=== PATIENT | male | born 1975 | race Caucasian/White ===

== ENCOUNTER 2025-07-28 18:59 | Emergency (ER) | payer OTHER, BC ==
[2025-07-28] MEDS ORDERED: fentaNYL 100 MCG/2 ML SDV ONE (19:00)
[2025-07-28] MEDS: fentaNYL 100 MCG/2 ML SDV NASBOTH ONE (19:06)
[2025-07-28 19:19] LABS: BASOPHILS ABSOLUTE AUTO 0.09 K/uL (0.00-0.10); BASOPHILS PERCENT AUTO 0.5 % (0.1-1.3); EOSINOPHILS ABSOLUTE AUTO 0.16 K/uL (0.00-0.40); EOSINOPHILS PERCENT AUTO 0.9 % (0.0-5.4); IMMATURE GRAN ABSOLUTE AUTO 0.14 K/uL (0.00-0.23); IMMATURE GRAN PERCENT AUTO 0.8 % (0.0-0.7); LYMPHOCYTES ABSOLUTE AUTO 3.83 K/uL (0.8-3.3); LYMPHOCYTES PERCENT AUTO 21.3 % (11.4-47.7); MONOCYTES ABSOLUTE AUTO 1.72 K/uL (0.20-0.90); MONOCYTES PERCENT AUTO 9.6 % (3.3-12.6); NEUTROPHILS ABSOLUTE AUTO 12.07 K/uL (1.0-7.6); NEUTROPHILS PERCENT AUTO 66.9 % (40.0-78.1); PLATELET COUNT,PLT 303 K/uL (130-375); RED BLOOD CELL COUNT 5.18 M/uL (4.14-5.76); WHITE BLOOD CELL COUNT,WBC 18.0 K/uL (3.2-11.0)
[2025-07-28] MEDS: diphenhydrAMINE 50 MG/ML SDV IVPUSH ONE (19:21)
[2025-07-28] MEDS: methylPREDNISolone Sodium Succinate 40 MG/1 ML SDV IVPUSH ONE (19:21)
[2025-07-28] MEDS: Ondansetron 4 MG/2 ML SDV IVPUSH ONE (19:21)
[2025-07-28] MEDS: Ketamine 500 MG/5 ML MDV IV ONE (19:28)
[2025-07-28 19:34] LABS: A/G RATIO 1.3 (1.2-2.2); ALANINE AMINOTRANSFERASE,ALT 81 U/L (12-78); ASPARTATE AMNIOTRANSFERASE,AST 43 U/L (15-37); BILIRUBIN TOTAL 0.4 mg/dL (0.2-1.0); BLOOD UREA NITROGEN,BUN 17 mg/dL (7-18); CARBON DIOXIDE,CO2 25 mmol/L (21-32); CHLORIDE,CL 107 mmol/L (100-108); CREATININE 1.6 mg/dL (0.8-1.3); EST CRCL DRUG DOSING (CG) 65.18 mL/min; ESTIMATED GFR 53 mL/min (>60); GLUCOSE RANDOM 141 mg/dL (74-106); POTASSIUM,K 4.3 mmol/L (3.6-5.2); PROTEIN TOTAL,TP 7.4 g/dL (6.4-8.2); SODIUM,NA 143 mmol/L (140-148)
[2025-07-28] MEDS: Lactated Ringers 1,000 ML IV ONE (20:23)
[2025-07-28] MEDS: Sodium Chloride 0.9% 10 ML Syringe FLUSH PRN (20:26)
[2025-07-28] MEDS: Sodium Chloride 0.9% 10 ML Syringe FLUSH ONE (21:41)
[2025-07-28] MEDS: Iopamidol 612 MG/ML 100 ML Bottle IV ONE (21:41)
== END 2025-07-28 22:42 | disposition home or self-care (01) ==
LOC: JP.ED 18:59
DX: S32.049A Unspecified fracture of fourth lumbar vertebra, initial encounter for closed fracture (principal); S32.059A Unspecified fracture of fifth lumbar vertebra, initial encounter for closed fracture; Z91.018 Allergy to other foods; Z88.5 Allergy status to narcotic agent; Z91.041 Radiographic dye allergy status; V86.05XA Driver of 3- or 4- wheeled all-terrain vehicle (ATV) injured in traffic accident, initial encounter
CPT/HCPCS: 36415; 71260; 73030; 74177; 80053; 80307; 83605; 85025; 96374; 96375; 96376; 99284; J1171; J1200; J2405; J2919; J3010; J7120; Q9967